=== PATIENT | female | born 1990 | race American Indian/Alaskan Native ===

== ENCOUNTER 2019-05-03 16:44 | Emergency (ER) | payer MEDICAID ==
--- NOTE | 2019-05-03 16:59 | Emergency Department Report ---
Blank Doc - Documentation Documentation: 29-year-old female that was sent by OBGYN for headache and HTN. 13 weeks preg nant. This initial assessment/diagnostic orders/clinical plan/treatment(s) is/are subject to change based on patient's health status, clinical progression and re- assessment by fellow clinical providers in the ED. Further treatment and workup at subsequent clinical providers discretion. Patient/guardians urged not to elope from the ED as their condition may be serious if not clinically assessed and managed. Initial orders include: 1- Patient sent to MAIN ED for further evaluation and treatment 2- labs 3- UA
[2019-05-03 17:57] LABS: Basophils % (Auto) 0.3 % (0.0-1.8); Eosinophils # (Auto) 0.1 K/mm3 (0.0-0.4); Eosinophils % (Auto) 0.8 % (0.0-4.3); Hematocrit 35.6 % (30.3-42.9); Hemoglobin 12.2 gm/dl (10.1-14.3); Lymphocytes # (Auto) 2.5 K/mm3 (1.2-5.4); Lymphocytes % (Auto) 25.2 % (13.4-35.0); Mean Corpuscular HGB Conc 34 % (30-34); Mean Corpuscular Volume 93 fl (79-97); Monocytes # (Auto) 0.9 K/mm3 (0.0-0.8); Monocytes % (Auto) 9.3 % (0.0-7.3); Platelet Count 277 K/mm3 (140-440); Red Blood Count 3.84 M/mm3 (3.65-5.03); Red Cell Distribution Width 12.5 % (13.2-15.2)
[2019-05-03 18:01] LABS: Alanine Aminotransferase 13 units/L (7-56); Albumin 4.1 g/dL (3.9-5); BUN/Creatinine Ratio 15; Blood Urea Nitrogen 9 mg/dL (7-17); Calcium 9.5 mg/dL (8.4-10.2); Hemolysis Index 10
[2019-05-03 19:45] LABS: Bilirubin,Urine NEG (Negative); Blood,Urine NEG (Negative); Color,Urine Yellow (Yellow); Mucus,Urine FEW /HPF
[2019-05-03 21:45] VITALS: BP 147/67
--- NOTE | 2019-05-03 22:16 | Emergency Department Report ---
ED Headache HPI - General Chief Complaint: Headache Stated Complaint: HEADACHE FOR 2 DAYS/13 WKS Time Seen by Provider: 05/03/19 16:58 Source: patient Exam Limitations: no limitations - History of Present Illness Initial Comments: Patient is a 29-year-old female that presents emergency room with complaints of frontal headache 2 days. Patient states her [facility] sent her here. Patient states she has been taking Tylenol and caffeine with good results. Patient denies dizziness. Patient denies pedal changes. Patient denies blurry vision. Patient denies intractable pain. Patient denies fever and chills. Patient denies neck pain. Patient denies chest pain shortness of breath. Patient denies abdominal pain. Patient states she is 13 weeks and is being followed by an [facility]. Patient denies vaginal discharge. Patient denies any complications. Patient states she is a . Timing/Duration: other (2 days) Quality: moderate, other (intermittent) Head Injury Location: frontal Recent Head Trauma: no recent headache/trauma Modifying Factors: improves with: medication (relieved by tylenol), rest Associated Symptoms: denies: confusion, fatigue, facial pain, fever/chills, flushing, loss of consciousness, nausea/vomiting, nasal drainage, numbness in legs/feet, rash, seizures, sinus infection, stiff neck, vision changes, weakness Allergies/Adverse Reactions: Allergies No Known Allergies Allergy (Unverified 05/03/19 17:05) Home Medications: Ambulatory Orders Cetirizine HCl [ZyrTEC 10mg cap] 10 mg PO QAM 10 Days #10 capsule 05/03/19 Fluticasone [Flonase] 1 spray NS QDAY 30 Days #1 bottle 05/03/19 ED Review of Systems ROS: Stated complaint: HEADACHE FOR 2 DAYS/13 WKS Other details as noted in HPI Constitutional: denies: chills, fever Eyes: denies: eye pain, eye discharge, vision change ENT: denies: ear pain, throat pain Respiratory: denies: cough, shortness of breath, wheezing Cardiovascular: denies: chest pain, palpitations Endocrine: no symptoms reported Gastrointestinal: denies: abdominal pain, nausea, diarrhea Genitourinary: denies: urgency, dysuria, discharge Musculoskeletal: denies: back pain, joint swelling, arthralgia Skin: denies: rash, lesions Neurological: headache. denies: weakness, paresthesias Psychiatric: denies: anxiety, depression Hematological/Lymphatic: denies: easy bleeding, easy bruising ED Past Medical Hx - Past Medical History Previous Medical History?: Yes Hx Headaches / Migraines: Yes - Surgical History Past Surgical History?: Yes - Family History Family history: no significant - Social History Smoking Status: Never Smoker Substance Use Type: None - Medications Home Medications: Home Medications Medication Instructions Recorded Confirmed Last Taken Type Cetirizine HCl [ZyrTEC 10mg cap] 10 mg PO QAM 10 Days #10 capsule 05/03/19 Unknown Rx Fluticasone [Flonase] 1 spray NS QDAY 30 Days #1 bottle 05/03/19 Unknown Rx ED Physical Exam - General Limitations: No Limitations General appearance: alert, in no apparent distress - Head Head exam: Present: atraumatic, normocephalic - Eye Eye exam: Present: normal appearance, PERRL Pupils: Present: normal accommodation - ENT ENT exam: Present: mucous membranes moist, other (patient has nasal turbinate enlargement with a pale appearance. No tenderness over the maxillary sinus or the frontal sinus.) - Expanded ENT Exam Expanded Ear exam: Present: normal external inspection Mouth exam: Present: normal external inspection - Neck Neck exam: Present: normal inspection - Respiratory Respiratory exam: Present: normal lung sounds bilaterally. Absent: respiratory distress - Cardiovascular Cardiovascular Exam: Present: regular rate, normal rhythm. Absent: systolic murmur, diastolic murmur, rubs, gallop - GI/Abdominal GI/Abdominal exam: Present: soft, normal bowel sounds - Extremities Exam Extremities exam: Present: normal inspection - Back Exam Back exam: Present: normal inspection - Neurological Exam Neurological exam: Present: alert, oriented X3 - Psychiatric Psychiatric exam: Present: normal affect, normal mood - Skin Skin exam: Present: warm, dry, intact, normal color. Absent: rash ED Course Vital Signs 05/03/19 05/03/19 05/03/19 16:59 21:44 22:05 Temperature 98.2 F 98.9 F Pulse Rate 95 H 88 88 Respiratory 18 20 20 Rate Blood Pressure 136/77 147/67 Blood Pressure 147/67 [Right] O2 Sat by Pulse 100 99 99 Oximetry - Reevaluation(s) Reevaluation #1: I discussed all results with patient. Discussed plan of care patient. Discussed treatment patient. Patient states she does not want any narcotics or steroids. Patient agrees with plan of care and discharge. Patient will be discharged home. Patient stable for discharge. Patient given discharge instructions. Patient voiced understanding of discharge instructions. 05/03/19 22:10 ED Medical Decision Making - Lab Data Result diagrams: 05/03/19 17:07 05/03/19 17:07 Critical care attestation.: If time is entered above; I have spent that time in minutes in the direct care of this critically ill patient, excluding procedure time. ED Disposition Clinical Impression: Sinus headache Headache Qualifiers: Headache type: unspecified Headache chronicity pattern: acute headache I ntractability: not intractable Qualified Code(s): R51 - Headache Disposition: DC- TO HOME OR SELFCARE Is pt being admited?: No Does the pt Need Aspirin: No Condition: Stable Instructions: Sinusitis (ED), Allergic Rhinitis (ED), Acute Headache (ED) Additional Instructions: Patient to follow up with primary care in 2-3 days. Patient to return to ER if condition worsens or changes or new symptoms arise. Patient to follow up with [facility] in 2-3 days. Patient to take Tylenol when necessary for pain. Patient to take meds as directed. Patient to increase water. Prescriptions: Fluticasone [Flonase] 1 spray NS QDAY 30 Days #1 bottle Cetirizine HCl [ZyrTEC 10mg cap] 10 mg PO QAM 10 Days #10 capsule Forms: Work/School Release Form(ED) Time of Disposition: 22:19
== END 2019-05-03 22:35 | disposition home or self-care (01) ==
LOC: ED 16:44
DX: O26.891 Other specified pregnancy related conditions, first trimester (principal); R51 Headache; Z79.899 Other long term (current) drug therapy; Z3A.13 13 weeks gestation of pregnancy
CPT/HCPCS: 36415; 80053; 81001; 85025